=== PATIENT | female | born 1950 | race Caucasian/White ===

== ENCOUNTER 2017-05-27 10:04 | Outpatient (CLI) ==
[2015-06-13 14:23] VITALS: BMI 31.8
--- NOTE | 2017-05-27 10:58 | US ---
EXAM: Ultrasound bilateral carotid duplex. HISTORY: Carotid bruit. COMPARISON: 12/22/2015. TECHNIQUE: Multiple parker scale and color Doppler images were obtained. FINDINGS: Please note that estimates of internal carotid artery stenoses are based upon NASCET crite ana laura. Right carotid: No significant plaquing identified. Peak systolic velocity measurement in the right internal carotid artery is 1.0 meters per second. Right internal to common carotid artery peak systo lic velocity ratio measures 1.1. End diastolic velocity measurement in the right internal carotid ar yasmin is 0.3 meters per second. Flow in the right vertebral artery is antegrade. Left carotid: No significant plaquing identified. Peak systolic velocity measurement in the left in ternal carotid artery is 0.7 meters per second. Left internal to common carotid artery peak systolic velocity ratio measures 1.1. End diastolic velocity measurement in the left internal carotid artery measures 0.3 meters per second. Flow in the left vertebral artery is antegrade. Since the prior study, there has been no significant interval change. IMPRESSION: 1. No evidence for 50% or greater stenosis in the right or left internal carotid artery. 2. Antegrade flow in both vertebral arteries.
== END 2017-05-27 10:05 | disposition home or self-care (01) ==
LOC: RAD 10:04
PROVIDERS: ATTEND Family Medicine
DX: R09.89 Other specified symptoms and signs involving the circulatory and respiratory systems (principal); I65.29 Occlusion and stenosis of unspecified carotid artery

== ENCOUNTER 2017-07-29 08:14 | Emergency (ER) ==
[2017-07-29 08:23] VITALS: BP 121/87; TEMP 98.7; BMI 30.1
[2017-07-29 09:12] LABS: PROTHROMBIN TIME 16.7 SEC (9.3-11.0)
--- NOTE | 2017-07-29 09:14 | DI ---
EXAM: Four views of the right knee HISTORY: Right knee pain. COMPARISON: Right knee x-rays 02/16/2016 FINDINGS: Medial and lateral compartments are unchanged. There is minimal osteophyte formation. The patella femoral compartment demonstrates mild narrowing and osteophyte formation. There is no displ aced fracture or dislocation of the right knee. The soft tissues are unremarkable. IMPRESSION: Tricompartmental right knee osteoarthritis most pronounced in the patellofemoral compart ment.
--- NOTE | 2017-07-29 09:42 | US ---
EXAM: Ultrasound venous Doppler right lower extermity HISTORY: Pain, tenderness and swelling 1 week COMPARISON: None TECHNIQUE: Venous duplex ultrasound of the right lower extremity was performed using color, parker-sca le, and Doppler flow imaging. FINDINGS: There is normal color flow and compression of the right common femoral, greater saphenous, profunda femoral, femoral, popliteal, peroneal, posterior tibial, and anterior tibial veins without evidence of intraluminal thrombus. IMPRESSION: No right lower extremity deep venous thrombosis.
--- NOTE | 2017-07-29 10:01 | ED.PDOC ---
General ED Provider: Dr. PATRICE MURGUIA Chief Complaint: Knee Pain/Injury Stated Complaint: right knee and lower leg pain Time Seen by Physician: 08:20 Mode of Arrival: Wheelchair Information Source: Patient Exam Limitations: No limitations Primary Care Provider: BREANNE HERNANDES Nursing and Triage Documentation Reviewed and Agree: Yes (notrauma 1 week history of clots ) Musculoskeletal Complaint Exam - Ankle/Foot Complaint/Exam Location of Injury: Reports: Right, Foot Mechanism of Injury: Reports: No known trauma Onset/Duration: 1 week Symptoms Are: Reports: Still present Onset of Pain: Reports: Days Initial Severity: Moderate Current Severity: Moderate Location: Reports: Discrete Character: Reports: Aching Alleviating: Reports: Rest, Position Aggravating: Reports: Movement, Weight bearing, Prolonged standing Able to Bear Weight: Yes Associated Signs and Symptoms: Denies: Swelling, Redness, Bruising, Fever, Weakness, Numbness, Tingling Gout Risk Factors: Reports: None Related Surgical History: Reports: None Achilles Tendon Abnormality: No Tenderness: Present: Midfoot Differential Diagnosis: Closed Fracture Review of Systems - Review Of Systems Constitutional: Reports: No symptoms Eyes: Reports: No symptoms Ears, Nose, Mouth, Throat: Reports: No symptoms Respiratory: Reports: No symptoms Cardiac: Reports: No symptoms GI: Reports: No symptoms : Reports: No symptoms Musculoskeletal: Reports: No symptoms Skin: Reports: No symptoms Neurological: Reports: No symptoms Endocrine: Reports: No symptoms Hematologic/Lymphatic: Reports: No symptoms All Other Systems: Reviewed and Negative Past Medical History - Past Medical History Previously Healthy: Yes Endocrine: Reports: None Cardiovascular: Reports: CAD Respiratory: Reports: None Hematological: Reports: None Gastrointestinal: Reports: GERD Genitourinary: Reports: None Neuro/Psych: Reports: CVA Musculoskeletal: Reports: None Cancer: Reports: None Last Menstrual Period: NA Other Pertinent Past Medical History: CEREBRAL BLOOD CLOTS, NEUROPATHY - Surgical History General Surgical History: Reports: Cholecystectomy, Tonsillectomy. Denies: CABG (stents) - Family History Family History: Reports: Unknown - Social History Smoking Status: Never smoker Hx Substance Use: No Alcohol Screening: None Physical Exam - Physical Exam Appearance: Well-appearing, No pain distress, Well-nourished Eyes: ROGERIO, EOMI, Conjunctiva clear ENT: Ears normal, Nose normal, Oropharynx normal Respiratory: Airway patent, Breath sounds clear, Breath sounds equal, Respirations nonlabored Cardiovascular: RRR, Pulses normal, No rub, No murmur GI/: Soft, Nontender, No masses, Bowel sounds normal, No Organomegaly Musculoskeletal: Normal strength, ROM intact, No edema, No calf tenderness Skin: Warm, Dry, Normal color Neurological: Sensation intact, Motor intact, Reflexes intact, Cranial nerves intact, Alert, Oriented Psychiatric: Affect appropriate, Mood appropriate Critical Care Note - Critical Care Note Total Time (mins): 0 Course - Course Orders, Labs, Meds: Lab Review 07/29/17 08:45 PT 16.7 H INR 1.66 APTT Pending Orders Category Date Time Status PARTIAL THROMBOPLASTIN TIME Stat LAB 07/29/17 08:45 Results PT WITH INR Stat LAB 07/29/17 08:45 Results KNEE, RIGHT 4 VIEWS Stat RADS 07/29/17 08:37 Completed U/S VENOUS SCAN RT. LEG Stat RADS 07/29/17 08:38 Completed Vital Signs: Temp Pulse Resp BP Pulse Ox 07/29/17 08:19 98.7 F 91 H 16 121/87 95 Departure - Departure Time of Disposition: 10:01 Disposition: HOME SELF-CARE Discharge Problem: Knee pain Instructions: Knee Pain (ED) Condition: Good Pt referred to PMD for follow-up: Yes Additional Instructions: Please call your Family Physician as soon as possible to schedule a follow-up appointment. Allergies/Adverse Reactions: Allergies atorvastatin calcium [From Lipitor] Adverse Reaction (Verified 07/29/17 08:15) Home Medications: Ambulatory Orders Aspirin [Aspirin Chewable] 81 mg PO DAILYWM 06/13/15 Fluticasone Propionate [Flonase] 1 spray NS PRN PRN 06/13/15 Gabapentin 200 mg PO BEDTIME 06/13/15 Gabapentin [Neurontin] 100 mg PO QAM 06/13/15 Omeprazole [Prilosec] 20 mg PO QDAC 06/13/15 Warfarin Sodium [Coumadin] 4 mg PO QPM 06/13/15 Pravastatin Sodium [Pravachol] 20 mg PO BEDTIME 07/29/17
[2017-07-29 11:26] LABS: PARTIAL THROMBOPLASTIN TIME 31.1 SEC (23.9-40.0)
== END 2017-07-29 10:06 | disposition home or self-care (01) ==
LOC: ED 08:14
DX: M25.561 Pain in right knee (principal); M79.661 Pain in right lower leg; Z79.01 Long term (current) use of anticoagulants; Z79.899 Other long term (current) drug therapy
CPT/HCPCS: 36415; 85610; 85730; 99282

== ENCOUNTER 2017-08-07 10:00 | Outpatient (CLI) | payer OTHER ==
--- NOTE | 2017-08-07 14:18 | MRI ---
EXAM: MRI right knee without contrast. HISTORY: Right knee pain. No right knee surgery reported.. COMPARISON: Four view plain film examination right knee 02/16/2016. Four view plain film examinatio n right knee 07/29/2017. TECHNIQUE: Using a local extremity coil on a high field strength magnet multiplanar multisequence MR I was performed of the right knee without intravenous or intra-articular gadolinium contrast. FINDINGS: Within the medial compartment the medial meniscus is intact without discrete surfacing men iscal tear. Approximate 15 x 7 mm area of chondrosis and cartilage ulceration over the weightbearing medial femoral condyle. Productive osteophyte formation. Within the lateral compartment the lateral meniscus is intact without discrete surfacing meniscal tea r. The minimal chondrosis weightbearing lateral femoral condyle. Small 7 mm focus of subchondral fr acture over the lateral weightbearing aspect of the lateral femoral condyle with underlying subchondr al edema. Productive osteophyte formation. Within the patellofemoral compartment the patella seated with intact medial and lateral patellar reti naculum. Patellar chondrosis/chondromalacia patella centered over the median ridge with cartilage ul ceration. Generalized cartilage attenuation which is also seen over the trochlear groove most eviden t over the superior lateral trochlea with full-thickness cartilage denudation. Patellofemoral compar tment productive osteophyte formation. Small right knee effusion. Synovitis. No large osteochondral loose bodies. Intact anterior and pos terior cruciate ligament fibers.. Patellar enthesopathy. The extensor mechanism is intact. The med ial collateral ligament as well as lateral collateral ligament complex and posterolateral corner inta ct.. IMPRESSION: No discrete surfacing meniscal tear identified. Changes of tricompartmental osteoarthrosis, patellofemoral compartment dominant, as described. Small 7 mm focus of subchondral fracture over the lateral weightbearing aspect of the lateral femoral condyle with underlying subchondral edema. Small right effusion. Synovitis. Intact cruciate and collateral ligaments.
== END 2017-08-07 10:01 | disposition home or self-care (01) ==
LOC: RAD 10:00
PROVIDERS: ATTEND Family Medicine
DX: M19.90 Unspecified osteoarthritis, unspecified site (principal); R26.9 Unspecified abnormalities of gait and mobility; M25.561 Pain in right knee

== ENCOUNTER 2018-03-27 12:28 | Outpatient (CLI) ==
--- NOTE | 2018-03-27 15:15 | MRI ---
EXAM: MRI brain without and with IV contrast. DATE: 03/27/2018. HISTORY: Chronic cerebrovascular accident. Cardiac disease. TECHNIQUE: Sagittal T1W pre and postcontrast, axial T2W, axial FLAIR, axial T1W pre and postcontrast , axial DWI, coronal T1W postcontrast, and coronal T2W GRE sequences of the brain were obtained using 1.5 Michelle magnet. CONTRAST: Dotarem - 15 ml IV. COMPARISON: None. FINDINGS: The ventricles, cisterns, sulci and subarachnoid spaces are somewhat prominent due to invo lutional change. No midline shift, mass effect or abnormal extra-axial fluid collection is apparent. No acute infarct, hemorrhage or enhancing neoplasm is identified. No abnormal contrast enhancement is identified in the brain, meninges or dura. Small, confluent rim of T2W/FLAIR hyperintensity is o bserved in the white matter abutting each lateral ventricle. T2W bright, T1W dark, 2 mm focus in the right frontal lobe near the anterior horn right lateral ventricle is consistent with an old infarct. Multiple to to 7 mm, T2W/FLAIR bright, non-enhancing foci are scattered in the hickey radiata, cent rum semiovale and subcortical white matter bilaterally. Multiple 1-2 mm T2W bright foci within the b ilateral basal ganglia and thalami do not demonstrate abnormal enhancement. These may represent prom inent Virchow-Jaiden spaces. The parker - white matter differentiation is normal. A 2 mm T2W GRE black focus within the right posterior-superior putamen may represent old petechial hemorrhage. No migrati on or diverticulation abnormality is identified. The right hippocampal head appears slightly smaller than the left vs slice selection artifact. The 7th/8th cranial nerve complexes, cerebellopontine an gles, brainstem, and visible cervical spinal cord are normal. There is no cerebellar tonsillar ectop ia. The pituitary gland is normal in size and signal. Corpus callosum is normal in size and configu ration. Left vertebral artery is dominant. Right vertebral artery is diminutive in size and may ter minate as a PICA. Vertebrobasilar arterial system is tortuous. Right cavernous ICA is smaller in di ameter compared to the left. Flow voids are present in the major intracranial arteries and in the dur al venous sinuses. No aneurysm, AVM or dural venous sinus thrombosis is apparent. Right transverse sinus is dominant. Appearance of the lens of each eye suggests prior cataract surgery. No other orb it abnormality is identified. The mastoid air cells are unremarkable. There is mucosal thickening o f the left side the sphenoid sinus. Remaining paranasal sinuses are clear. No neck mass or lymphade nopathy is detected. No calvarial neoplasm or acute fracture is evident. IMPRESSIONS: 1. No acute infarct, acute hemorrhage, enhancing neoplasm or hydrocephalus. 2. Right frontal hickey radiata and right putamen old lacunar infarcts. 3. Mild/moderate supratentorial leukomalacia - likely small vessel disease vs chronic hypertensive e ncephalopathy. 4. Minor, benign bilateral basal ganglia mineral deposition. 5. Minor/mild cerebral and minor cerebellar atrophy. 6. 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 7. Diminutive right vertebral artery. May terminate as a PICA. 8. Sphenoid sinus chronic left-sided mucosal disease.
== END 2018-03-27 12:29 ==
LOC: RAD 12:28
PROVIDERS: ATTEND Psychiatry & Neurology Neurology
DX: I63.9 Cerebral infarction, unspecified (principal); I25.10 Atherosclerotic heart disease of native coronary artery without angina pectoris
CPT/HCPCS: 36415; 82565

== ENCOUNTER 2018-05-15 10:00 | Outpatient (RCR) | payer OTHER ==
--- NOTE | 2018-05-13 09:43 | RS.OPPTEV2 ---
Date of Note: 05/12/18 Visit #: 1 Date of Evaluation: 05/12/18 Payer Source: MEDICARE Surgery Performed?: No Treatment Diagnosis: weakness in B hips, dizziness History of Condition/Mechanism of Injury:: pt reports she has an "achiness" in her hips and low back that has been there for years, pt states she is unsure why MD sent her to PT. She said md reports her hips are weak. Prior Level of Function.....Patient was independent with: ADL's, Self Care, Caregiving, Ambulation/Mobility, Community Integration/Access Level of Function: pt amb without AD has a worker from [employer] that helps with housework. Functional Limitations: Squatting, Ambulation Current Subjective/complaints:: pt states that she went to MD and he tested her leg strength and he said she needed to go to therapy. Treatment Side (optional): N/A *Precautions: n/a Medical History Medical History: Hypertension, CVA/TIA, Arthritis Medical History Comments:: neuropathy Surgical History: Cholecystectomy Hx Home Medications: tylenol, aspirin, vitamin D3, gabapentin, prilosec, pravastatin, xarelto, flonase Patient's Goals: get stronger Pain Assessment - Pain Description Pain Location: lower lumbar area Pain Description: Aching Other Comments regarding Pain:: pt reports only "aching" not pain Functional Outcome Measure LE Functional Scale: 63 (22%) - G Codes & Severity Modifier G Codes & Modifier: mobility: walking and moving around: current CJ. mobility: walking and moving around: goal CI Source of G Code score: LE functional index scale Observation - Observation Inspection: B LE hamstring tightness R worse than L Posture: Forward Head, Rounded Shoulders, Increased Thoracic Kyphosis, Decreased Lumbar Lordosis Handedness: Right Gait - Gait Pattern General Gait Pattern Observation: No Deviations/Normal General Range of Motion: BUE WFL's. BLE WFL's Muscle Strength: BUE 4/5. LLE knee flex 4+/5,. ankle DF/PF 5/5. RLE knee flex 4/5, ankle Df/PF 5/5 Hip ROM: Bilaterally WFL's - Left Hip Strength Left Hip Flexion: 4 Good Left Hip Extension: 4- Good- Left Hip Abduction: 4- Good- Left Hip Adduction: 4- Good- - Right Hip Strength Right Hip Flexion: 4- Good- Right Hip Extension: 3+ Fair+ Right Hip Abduction: 3+ Fair+ Right Hip Adduction: 3+ Fair+ - Special Test NINI Test: Negative Left, Negative Right Silvio Test: Negative Left (hip scour test neg), Negative Right Palpation Palpation Findings: Tenderness (tenderness to palpation noted over B PSIS) Sensation - Sensation Right Upper Extremity: Intact/Normal Left Upper Extremity: Intact/Normal Right Lower Extremity: Impaired Left Lower Extremity: Impaired Comments: pt reports pain and tingling in BLE's due to neuropathy Balance - Sitting Balance Static Sitting Balance: Normal Dynamic Sitting Balance: Normal - Standing Balance Static Standing Balance: Good Dynamic Standing Balance: Good - Comments Balance Assessment Comments: tinetti balance assessment . sit to/from stand x 6 in 30 secs Interventions - Exercise/Activities/Manual Therapy Exercises/Activities: pt received BLE hamstring stretch, isometric hip add, seated hip flex, LAQ, standing heel raises, short squats, hip flex x 10 reps Total minutes of Exercise: 12 Manual Therapy: n/a HOME EXERCISE PROGRAM: pt given written HEP including hamstring stretch, seated hip flex, LAQ, standing heel raises, short squats, standing hip flex - Charges Timed Code Treatment Minutes: 52 Total Treatment Time: 61 Procedures billed for this date of service:: eval med, ex EVALUATION COMPLEXITY LEVEL EVALUATION COMPLEXITY LEVEL: HISTORY: Medium (HTN, CVA, OA), EXAM OF BODY SYSTEMS: Medium (strength, posture, pain), CLINICAL PRESENTATION: Medium, CLINICAL DECISION MAKING: Medium Assessment Assessment: pt presents with decreased strength, hamstring tightness, as well as posture. pt with decreased endurance. Patient Education: Home Exercise Program, Education of Plan of Care Rehab Potential: Good Short Term Goals Goal #1: pt with improved strength BLE 4 to 4+/5 Goal to be met by: 05/19/18 Goal #2: pt independent with initial HEP Goal to be met by: 05/19/18 Goal #3: Improve hamstring flexibility R equal to L Goal to be met by: 05/19/18 Goal #4: Improve dyn stand balance Tinetti score Goal to be met by: 05/19/18 Interior Design Professional Goals Goal #1: pt report increased ability to perform housework with no c/o pain. Goal to be met by: 06/03/18 Goal #2: Improved strength B LE to allow for sit to/from stand x 8 in 30 secs Goal to be met by: 06/03/18 Goal #3: Gait speed to be > 0.8m/s to be consistent with community ambulator Goal to be met by: 06/03/18 Goal #4: pt amb community distances independently with no reports of falls Goal to be met by: 06/03/18 Plan - Treatment to be Provided Procedures: Therapeutic Exercises, Therapeutic Activity, Neuromuscular Rehab, Manual Therapy, Patient Education Modalities: No Modalities - Treatment Plan Frequency: 2 X week Duration: 3 weeks ORDER # VISITS AND/OR THROUGH DATE: 06/03/18 - Treatment Code (1) Weakness of both hips Code(s): R29.898 - OTH SYMPTOMS AND SIGNS INVOLVING THE MUSCULOSKELETAL SYSTEM (2) Muscle weakness Code(s): M62.81 - MUSCLE WEAKNESS (GENERALIZED) (3) Difficulty walking Code(s): R26.2 - DIFFICULTY IN WALKING, NOT ELSEWHERE CLASSIFIED (4) Impairment of balance Code(s): R26.89 - OTHER ABNORMALITIES OF GAIT AND MOBILITY
--- NOTE | 2018-05-15 13:28 | RS.OPPTDN ---
Subjective Date of Note: 05/15/18 Visit #: 2 Date of Evaluation: 05/12/18 Payer Source: MEDICARE Treatment Diagnosis: weakness in B hips, dizziness Current Subjective/complaints:: Patient says that she has tried HEP without difficulty, but can tell that her R leg is weaker. She denies pain at present. States she has been dizzy since her CVA many years ago. *Precautions: n/a Interventions - Exercise/Activities/Manual Therapy Exercises/Activities: Patient receives passive stretching for SKTC, HS, Piriformis, Fig 4, lower trunk rotation x 3 bilaterally. Patient performs general LE/trunk strengthening: QS, SAQ 1 1/2# (R), 3# for (L), Ball squeezes, isometric hip abd in hooklying, isometric hip flexion, DF with red tband, all x 10 reps. Bridging x 5, SLR x 8. Patient receives education on all therex and benefits of each. Total minutes of Exercise: 35 Manual Therapy: n/a HOME EXERCISE PROGRAM: pt given written HEP including hamstring stretch, seated hip flex, LAQ, standing heel raises, short squats, standing hip flex - Charges Timed Code Treatment Minutes: 35 Total Treatment Time: 40 Procedures billed for this date of service:: ex2 Assessment: Patient presents with no c/o's pain, but intermittent dizziness with sit to stand. She has been trying HEP without difficulty other than general muscle fatigue. She does demo weakness to the R LE compared to the L and is evident with all exercises as we alter the weight/reps to improve toleration. She amb independently without LOB. She is encouraged to continue with HEP and may perform them after using heat source (shower, heating pad) for comfort. Patient Education: Education of diagnosis, Body/Joint mechanics, Home Exercise Program, Education of Plan of Care Patient demonstrates compliance with HEP?: Yes Short Term Goals Goal #1: pt with improved strength BLE 4 to 4+/5 Goal to be met by: 05/19/18 Goal #2: pt independent with initial HEP Goal to be met by: 05/19/18 Progress towards Goal:: Progressing Goal #3: Improve hamstring flexibility R equal to L Goal to be met by: 05/19/18 Goal #4: Improve dyn stand balance Tinetti score 22/28 Goal to be met by: 05/19/18 Halfway Goals Goal #1: pt report increased ability to perform housework with no c/o pain. Goal to be met by: 06/03/18 Goal #2: Improved strength B LE to allow for sit to/from stand x 8 in 30 secs Goal to be met by: 06/03/18 Goal #3: Gait speed to be > 0.8m/s to be consistent with community ambulator Goal to be met by: 06/03/18 Goal #4: pt amb community distances independently with no reports of falls Goal to be met by: 06/03/18 Plan PLAN OF CARE EXPIRES ON:: 06/03/18 ORDER # VISITS AND/OR THROUGH DATE: 06/03/18 PLAN: Patient to continue advancing LE/trunk strength for bal and gait.
== END 2018-05-18 23:59 | disposition short-term general hospital (02) ==
PROVIDERS: ATTEND Family Medicine
DX: R29.898 Other symptoms and signs involving the musculoskeletal system (principal); R42 Dizziness and giddiness

== ENCOUNTER 2018-06-16 12:02 | Emergency (ER) | payer OTHER ==
[2018-06-16 12:09] VITALS: BP 139/96; TEMP 97.7; BMI 33.3
--- NOTE | 2018-06-16 14:07 | ED.PDOC ---
General ED Provider: Dr. PATRICE MURGUIA Chief Complaint: Nosebleed Stated Complaint: epistaxis Time Seen by Physician: 12:00 (seen withalessandro blue at all times no active blleding in the ED ) Mode of Arrival: Stretcher Information Source: Patient, EMT Exam Limitations: No limitations Primary Care Provider: YEE HUTTON Nursing and Triage Documentation Reviewed and Agree: Yes Does patient meet sepsis criteria?: No System Inflammatory Response Syndrome: Not Applicable Sepsis Protocol: For patient's 13 years and over: Temp is 96.8 and below OR 101 and greater Pulse >90 BPM Resp >20/minute Acutely Altered Mental Status Are patient's symptoms suggestive of a new infection, such as: -Pneumonia -Skin, Soft Tissue -Endocarditis -UTI -Bone, Joint Infection -Implantable Device -Acute Abdominal Infection -Wound Infection -Meningitis -Blood Stream Catheter Infection -Unknown EENT Complaint Exam - Nasal Complaint/Exam Onset/Duration: TODAY P.T.A. Symptoms Are: Resolved Initial Severity: Mild Current Severity: None Location: Left Character: Light bleeding Aggravating: Reports: None Alleviating: Reports: None Associated Signs and Symptoms: Denies: Nasal congestion, Bruising, Hematuria, Hematochezia, Sinus pain, Nasal discharge, Foreign body, Abnormal coags Related History: Reports: Similar episode Nasal Surgical History: Reports: None Bleeding Present At: Left nostril Foreign Body Present: No Septal Hematoma: No Differential Diagnoses: Coagulopathy Review of Systems - Review Of Systems Constitutional: Reports: No symptoms Eyes: Reports: No symptoms Ears, Nose, Mouth, Throat: Reports: Epistaxis Respiratory: Reports: No symptoms Cardiac: Reports: No symptoms GI: Reports: No symptoms : Reports: No symptoms Musculoskeletal: Reports: No symptoms Skin: Reports: No symptoms Neurological: Reports: No symptoms Endocrine: Reports: No symptoms Hematologic/Lymphatic: Reports: No symptoms All Other Systems: Reviewed and Negative Past Medical History - Past Medical History Previously Healthy: Yes Endocrine: Reports: None Cardiovascular: Reports: CAD Respiratory: Reports: None Hematological: Reports: None Gastrointestinal: Reports: GERD Genitourinary: Reports: None Neuro/Psych: Reports: CVA Musculoskeletal: Reports: None Cancer: Reports: None Last Menstrual Period: menopause Other Pertinent Past Medical History: CEREBRAL BLOOD CLOTS, NEUROPATHY - Surgical History General Surgical History: Reports: Cholecystectomy, Tonsillectomy. Denies: CABG (stents) - Family History Family History: Reports: Unknown - Social History Smoking Status: Never smoker Hx Substance Use: No Alcohol Screening: None Physical Exam - Physical Exam Appearance: Well-appearing, No pain distress, Well-nourished Eyes: ROGERIO, EOMI, Conjunctiva clear ENT: Ears normal (COAGULATED BLOOD LEFT SIDE ) Respiratory: Airway patent, Breath sounds clear, Breath sounds equal, Respirations nonlabored Cardiovascular: RRR, Pulses normal, No rub, No murmur GI/: Soft, Nontender, No masses, Bowel sounds normal, No Organomegaly Musculoskeletal: Normal strength, ROM intact, No edema, No calf tenderness Skin: Warm, Dry, Normal color Neurological: Sensation intact, Motor intact, Reflexes intact, Cranial nerves intact, Alert, Oriented Psychiatric: Affect appropriate, Mood appropriate Critical Care Note - Critical Care Note Total Time (mins): 0 Course - Course Vital Signs: Temp Pulse Resp BP Pulse Ox 06/16/18 12:04 97.7 F 96 H 16 139/96 H 95 Departure - Departure Time of Disposition: 14:07 Disposition: HOME SELF-CARE Discharge Problem: Epistaxis Instructions: Nosebleed (ED) Condition: Good Pt referred to PMD for follow-up: Yes IPMP verified?: No Additional Instructions: Please call your Family Physician as soon as possible to schedule a follow-up appointment. Allergies/Adverse Reactions: Allergies atorvastatin calcium [From Lipitor] Adverse Reaction (Verified 06/16/18 12:12) Home Medications: Ambulatory Orders Aspirin [Aspirin Chewable] 81 mg PO DAILYWM 06/13/15 Omeprazole [Prilosec] 20 mg PO QDAC 06/13/15 Pravastatin Sodium [Pravachol] 20 mg PO BEDTIME 07/29/17 Rivaroxaban [Xarelto] 20 mg PO DAILY 05/06/18 Vit C/E/Zn/Coppr/Lutein/Zeaxan [Ocuvite Lutein Capsule] 1 each PO DAILY
== END 2018-06-16 14:55 | disposition home or self-care (01) ==
LOC: ED 12:02
DX: R04.0 Epistaxis (principal)
CPT/HCPCS: 99283